=== PATIENT | female | born 1985 | race Caucasian/White ===

== ENCOUNTER 2019-02-23 12:15 | Emergency (ER) | payer OTHER ==
[2019-02-23 13:57] VITALS: BP 140/87
--- NOTE | 2019-02-23 14:18 | UC ---
Skin Complaint HPI - HPI Summary HPI Summary: 33-year-old female comes in with a chief complaint of itching and concern of having scabies. Reports there is been bedbugs in her house and then exterminators in her house. Reports seeing bugs on her skin is all very itchy. Also has had 3 positive tests at home test today. Also spilled some hot water on her right ankle and has a burn on her right ankle and foot. - History of Current Complaint Chief Complaint: UCSkin Time Seen by Provider: 02/23/19 13:49 Stated Complaint: PERSONAL Pain Intensity: 0 - Allergy/Home Medications Allergies/Adverse Reactions: Allergies Allergy/AdvReac Type Severity Reaction Status Date / Time No Known Allergies Allergy Verified 02/23/19 13:51 Home Medications: Home Medications Buprenorp/Nalox 8-2 MG SL TAB [Suboxone 8-2 mg SL TAB*] 1 tab.sl SL BID [History Confirmed 02/23/19] Gabapentin CAP(*) [Neurontin 300 CAP(*)] 300 mg PO BEDTIME 02/23/19 [History Confirmed 02/23/19] Insulin GLARGINE(*) [Lantus(*)] 0 units SUBCUT ONCE 02/23/19 [History Confirmed 02/23/19] Insulin LISPRO* [HumaLOG*] 0 units SUBCUT SEE INSTRUCTIONS 02/23/19 [History Confirmed 02/23/19] Sertraline* [Zoloft*] 50 mg PO BEDTIME 02/23/19 [History Confirmed 02/23/19] PMH/Surg Hx/FS Hx/Imm Hx Previously Healthy: Yes Endocrine History: Diabetes - Surgical History Surgical History: Yes Surgery Procedure, Year, and Place: . skin transplant - Family History Known Family History: Positive: Non-Contributory - Social History Alcohol Use: Rare Substance Use Type: None Smoking Status (MU): Light Every Day Tobacco Smoker Type: Cigarettes Amount Used/How Often: 2 cigarettes daily Review of Systems All Other Systems Reviewed And Are Negative: Yes Constitutional: Positive: Other - SEE HPI Skin: Positive: Other - SEE HPI Eyes: Positive: Negative ENT: Positive: Negative Respiratory: Positive: Negative Cardiovascular: Positive: Negative Gastrointestinal: Positive: Negative Motor: Positive: Negative Neurovascular: Positive: Negative Musculoskeletal: Positive: Negative Neurological: Positive: Negative Psychological: Positive: Negative Is Patient Immunocompromised?: No Physical Exam Triage Information Reviewed: Yes Appearance: Well-Appearing, No Pain Distress, Well-Nourished Vital Signs: Initial Vital Signs Temp 97.8 F 02/23/19 13:51 Pulse 100 02/23/19 13:51 Resp 20 02/23/19 13:51 BP 140/87 02/23/19 13:51 Pulse Ox 99 02/23/19 13:51 Vital Signs Reviewed: Yes Eye Exam: Normal Eyes: Positive: Conjunctiva Clear Neck: Positive: Supple Respiratory: Positive: No respiratory distress Musculoskeletal: Positive: Strength Intact, ROM Intact Neurological: Positive: Alert Psychological: Positive: Age Appropriate Behavior Skin: Positive: Other - patient has erythema around the right ankle and foot. No blisters. Also has multiple scratch riddle on her arms. Course/Dx - Course Course Of Treatment: Patient reports seeing bugs on her and having itching everywhere. In no bugs seen on the patient's body. At this time we'll treat with Elimite for potential scabies. Going to use mupirocin for the first-degree burn on the ankle and foot. For the who referred her to [facility] and also the Center. Get reevaluated sooner if worse or any questions or concerns. - Diagnoses Provider Diagnosis: Rash, , Burn of leg, right, first degree Discharge ED - Sign-Out/Discharge Documenting (check all that apply): Patient Departure All imaging exams completed and their final reports reviewed: No Studies - Discharge Plan Condition: Stable Disposition: HOME Prescriptions: Mupirocin 1 applic TOPICAL BID #22 gm Permethrin [Elimite] 1 applic TOPICAL ONCE #60 gm Vit37/Iron/Folic Acid [Prenata Chewable Tablet] 1 tab PO DAILY #90 tab.chew Patient Education Materials: (ED), Scabies (ED), Superficial Burn (ED ), Acute Rash (ED) Referrals: [facility] [Provider Group] Critsina Jiang MD [Primary Care Provider] - Additional Instructions: FOLLOW UP WITH YOUR PRIMARY CARE DOCTOR FOR YOUR RASH. FOLLOW UP WITH OBGYN FOR YOUR . TAKE A DAILY VITAMIN. GET REEVALUATED SOONER IF NOT IMPROVING OR YOUR CONDITION WORSENS OR ANY QUESTIONS OR CONCERNS - Billing Disposition and Condition Condition: STABLE Disposition: Home
== END 2019-02-23 14:36 | disposition home or self-care (01) ==
LOC: UCCORT 12:15
DX: O9A.211 Injury, poisoning and certain other consequences of external causes complicating pregnancy, first trimester (principal); O99.331 Smoking (tobacco) complicating pregnancy, first trimester; O99.89 Other specified diseases and conditions complicating pregnancy, childbirth and the puerperium; O24.911 Unspecified diabetes mellitus in pregnancy, first trimester; T25.191A Burn of first degree of multiple sites of right ankle and foot, initial encounter; R21 Rash and other nonspecific skin eruption; F17.210 Nicotine dependence, cigarettes, uncomplicated; Z79.4 Long term (current) use of insulin; X11.8XXA Contact with other hot tap-water, initial encounter; Y92.9 Unspecified place or not applicable
CPT/HCPCS: 84702; 99212; G0463

== ENCOUNTER 2019-09-11 15:46 | Inpatient (IN) ==
[2019-09-11] MEDS ORDERED: Ondansetron 4 mg VIAL 2 MG/ML 2 ml VIAL IV PRN (16:03)
[2019-09-11] MEDS ORDERED: Dextrose 50% Syringe 50 ml 25 GM/50 ML SYRINGE IV PUSH PRN (16:10)
[2019-09-11] MEDS ORDERED: Vancomycin per Pharmacy 1 EA NOTE FOLLOW UP PRN (16:45)
[2019-09-11] MEDS: Nicotine GUM 4MG FRUIT FLAVOR PO PRN ×2 (18:03→20:46)
[2019-09-11] MEDS: Insulin LISPRO 100 units/ml(*) SUBCUT SCH ×2 (18:03→20:45)
[2019-09-11] MEDS: Vancomycin(*) 1,250 MG in NS 0.9% 250 ml 250 ML IV SCH (18:05)
[2019-09-11] MEDS: Insulin GLARGINE 100 un/ml (*) 10 ml VIAL SUBCUT SCH (20:45)
[2019-09-11] MEDS: Buprenorp/Nalox 8-2 MG SL TAB PO SCH (20:46)
[2019-09-11] MEDS ORDERED: Insulin GLARGINE 100 un/ml (*) 10 ml VIAL SUBCUT SCH (21:00)
[2019-09-12] MEDS: Vancomycin(*) 1,250 MG in NS 0.9% 250 ml 250 ML IV SCH ×3 (01:12→17:58)
[2019-09-12 05:32] LABS: EGFR African American 101.7 (>60)
[2019-09-12] MEDS: Insulin LISPRO 100 units/ml(*) SUBCUT SCH ×5 (08:02→20:46)
[2019-09-12] MEDS: Vitamin THERAPEUTIC TAB PO SCH (08:03)
[2019-09-12] MEDS: Buprenorp/Nalox 8-2 MG SL TAB PO SCH ×2 (08:05→20:45)
[2019-09-12] MEDS ORDERED: Insulin GLARGINE 100 un/ml (*) 10 ml VIAL SUBCUT SCH ×3 (09:00)
[2019-09-12] MEDS: Insulin GLARGINE 100 un/ml (*) 10 ml VIAL SUBCUT SCH ×2 (09:00→20:46)
[2019-09-12] MEDS: Nicotine GUM 4MG FRUIT FLAVOR PO PRN ×3 (10:14→20:46)
[2019-09-12] MEDS ORDERED: Dextrose 50% Syringe 50 ml 25 GM/50 ML SYRINGE IV PUSH PRN (12:32)
[2019-09-13] MEDS: Vancomycin(*) 1,250 MG in NS 0.9% 250 ml 250 ML IV SCH ×3 (01:58→17:08)
[2019-09-13] MEDS ORDERED: Vancomycin Trough Check NOTE FOLLOW UP ONE (09:30)
[2019-09-13] MEDS: Vitamin THERAPEUTIC TAB PO SCH (09:31)
[2019-09-13] MEDS: Buprenorp/Nalox 8-2 MG SL TAB PO SCH ×2 (09:33→20:35)
[2019-09-13] MEDS: Insulin LISPRO 100 units/ml(*) SUBCUT SCH ×5 (09:35→20:40)
[2019-09-13] MEDS: Insulin GLARGINE 100 un/ml (*) 10 ml VIAL SUBCUT SCH ×2 (09:35→20:41)
[2019-09-13] MEDS: Nicotine GUM 4MG FRUIT FLAVOR PO PRN ×3 (09:46→20:42)
[2019-09-13] MEDS ORDERED: Insulin LISPRO 100 units/ml(*) SUBCUT SCH (12:00)
[2019-09-14] MEDS: Vancomycin(*) 1,250 MG in NS 0.9% 250 ml 250 ML IV SCH ×3 (01:57→17:42)
[2019-09-14] MEDS: Buprenorp/Nalox 8-2 MG SL TAB PO SCH ×2 (09:18→19:41)
[2019-09-14] MEDS: Vitamin THERAPEUTIC TAB PO SCH (09:18)
[2019-09-14] MEDS: Insulin LISPRO 100 units/ml(*) SUBCUT SCH ×5 (09:19→19:55)
[2019-09-14] MEDS: Nicotine GUM 4MG FRUIT FLAVOR PO PRN ×3 (09:20→17:42)
[2019-09-14] MEDS: Insulin GLARGINE 100 un/ml (*) 10 ml VIAL SUBCUT SCH ×2 (09:20→19:55)
[2019-09-14 12:49] LABS: EGFR African American 100.2 (>60); EGFR Non-African American 82.8 (>60)
[2019-09-15] MEDS: Vancomycin(*) 1,250 MG in NS 0.9% 250 ml 250 ML IV SCH ×3 (02:20→18:13)
[2019-09-15] MEDS: Vitamin THERAPEUTIC TAB PO SCH (08:25)
[2019-09-15] MEDS: Buprenorp/Nalox 8-2 MG SL TAB PO SCH ×2 (08:25→19:31)
[2019-09-15] MEDS: Insulin LISPRO 100 units/ml(*) SUBCUT SCH ×5 (08:37→19:31)
[2019-09-15] MEDS: Insulin GLARGINE 100 un/ml (*) 10 ml VIAL SUBCUT SCH ×2 (08:38→19:32)
[2019-09-15] MEDS: Nicotine GUM 4MG FRUIT FLAVOR PO PRN ×5 (08:46→22:27)
[2019-09-16] MEDS: Vancomycin(*) 1,250 MG in NS 0.9% 250 ml 250 ML IV SCH ×3 (01:56→18:09)
[2019-09-16] MEDS: Buprenorp/Nalox 8-2 MG SL TAB PO SCH ×2 (08:19→20:15)
[2019-09-16] MEDS: Vitamin THERAPEUTIC TAB PO SCH (08:19)
[2019-09-16] MEDS: Insulin GLARGINE 100 un/ml (*) 10 ml VIAL SUBCUT SCH ×2 (08:22→20:14)
[2019-09-16] MEDS: Insulin LISPRO 100 units/ml(*) SUBCUT SCH ×5 (08:22→20:14)
[2019-09-16] MEDS: Nicotine GUM 4MG FRUIT FLAVOR PO PRN ×3 (12:22→20:15)
[2019-09-16] MEDS ORDERED: Insulin LISPRO 100 units/ml(*) SUBCUT SCH (21:00)
[2019-09-17] MEDS: Vancomycin(*) 1,250 MG in NS 0.9% 250 ml 250 ML IV SCH ×3 (02:51→18:43)
[2019-09-17] MEDS: Vitamin THERAPEUTIC TAB PO SCH (09:21)
[2019-09-17] MEDS: Buprenorp/Nalox 8-2 MG SL TAB PO SCH ×2 (09:23→21:32)
[2019-09-17] MEDS: Insulin GLARGINE 100 un/ml (*) 10 ml VIAL SUBCUT SCH ×2 (09:24→21:30)
[2019-09-17] MEDS: Insulin LISPRO 100 units/ml(*) SUBCUT SCH ×6 (09:40→21:31)
[2019-09-17] MEDS: Nicotine GUM 4MG FRUIT FLAVOR PO PRN ×3 (09:40→19:44)
[2019-09-17] MEDS ORDERED: Vancomycin Trough Check NOTE FOLLOW UP ONE (17:30)
[2019-09-17] MEDS ORDERED: Alteplase (CATHFLO) 2 MG VIAL IV STA (18:24)
[2019-09-18] MEDS: Vancomycin(*) 1,250 MG in NS 0.9% 250 ml 250 ML IV SCH ×3 (02:38→17:31)
[2019-09-18 05:44] LABS: ABS Basophils 0.1 10^3/ul (0-0.2); ABS Eosinophils 0.1 10^3/ul (0-0.6); ABS Monocytes 0.4 10^3/ul (0-0.8); Eosinophil % 2.5 %; Hematocrit 30 % (35-47); Hemoglobin 10.1 g/dL (12.0-16.0); Lymphocyte % 54.9 %; Mean Corpuscular HGB Conc 33 g/dL (31-36); Mean Corpuscular Hemoglobin 28 pg (27-31); Mean Corpuscular Volume 84 fL (80-97); Mean Platelet Volume 6.2 fL (7.4-10.4); Nucleated Red Blood Cells % 0.1; Platelet Count 274 10^3/uL (150-450); Red Blood Count 3.59 10^6 /uL (3.70-4.87); Red Cell Distribution Width 15 % (10-15); White Blood Count 5.5 10^3/uL (3.5-10.8)
[2019-09-18 06:02] LABS: Albumin 3.2 g/dL (3.2-5.2); Albumin/Globulin Ratio 1.1 (1-3); BUN/Creatinine Ratio 39.7 (8-20); C Reactive Protein 5.05 mg/L (<8.01); Calcium 8.6 mg/dL (8.6-10.3); EGFR African American 109.2 (>60); EGFR Non-African American 90.2 (>60); Globulin 2.9 g/dL (2-4); Total Bilirubin 0.2 mg/dL (0.2-1.0); Total Protein 6.1 g/dL (6.4-8.9)
[2019-09-18] MEDS: Insulin LISPRO 100 units/ml(*) SUBCUT SCH ×7 (07:26→21:35)
[2019-09-18] MEDS: Vitamin THERAPEUTIC TAB PO SCH (08:57)
[2019-09-18] MEDS: Insulin GLARGINE 100 un/ml (*) 10 ml VIAL SUBCUT SCH ×2 (09:00→21:35)
[2019-09-18] MEDS: Buprenorp/Nalox 8-2 MG SL TAB PO SCH ×2 (09:01→21:37)
[2019-09-18] MEDS: Nicotine GUM 4MG FRUIT FLAVOR PO PRN ×4 (09:05→21:37)
[2019-09-19] MEDS: Vancomycin(*) 1,250 MG in NS 0.9% 250 ml 250 ML IV SCH ×3 (02:48→18:42)
[2019-09-19 06:04] LABS: ABS Basophils 0.1 10^3/ul (0-0.2); ABS Eosinophils 0.1 10^3/ul (0-0.6); ABS Monocytes 0.4 10^3/ul (0-0.8); Eosinophil % 2.5 %; Hematocrit 32 % (35-47); Hemoglobin 10.6 g/dL (12.0-16.0); Lymphocyte % 54.8 %; Mean Corpuscular HGB Conc 33 g/dL (31-36); Mean Corpuscular Hemoglobin 28 pg (27-31); Mean Corpuscular Volume 83 fL (80-97); Mean Platelet Volume 6.8 fL (7.4-10.4); Platelet Count 293 10^3/uL (150-450); Red Cell Distribution Width 15 % (10-15); White Blood Count 5.4 10^3/uL (3.5-10.8)
[2019-09-19 06:15] LABS: Albumin 3.3 g/dL (3.2-5.2); Albumin/Globulin Ratio 1.1 (1-3); BUN/Creatinine Ratio 34.7 (8-20); C Reactive Protein 4.36 mg/L (<8.01); Calcium 8.9 mg/dL (8.6-10.3); EGFR African American 110.9 (>60); EGFR Non-African American 91.7 (>60); Total Bilirubin 0.2 mg/dL (0.2-1.0); Total Protein 6.3 g/dL (6.4-8.9)
[2019-09-19] MEDS: Insulin LISPRO 100 units/ml(*) SUBCUT SCH ×7 (07:52→20:54)
[2019-09-19] MEDS: Buprenorp/Nalox 8-2 MG SL TAB PO SCH ×2 (08:24→20:49)
[2019-09-19] MEDS: Vitamin THERAPEUTIC TAB PO SCH (08:25)
[2019-09-19] MEDS: Nicotine GUM 4MG FRUIT FLAVOR PO PRN ×3 (08:25→20:49)
[2019-09-19] MEDS: Insulin GLARGINE 100 un/ml (*) 10 ml VIAL SUBCUT SCH ×2 (08:25→20:48)
[2019-09-20] MEDS: Vancomycin(*) 1,250 MG in NS 0.9% 250 ml 250 ML IV SCH ×3 (02:49→18:36)
[2019-09-20] MEDS: Insulin LISPRO 100 units/ml(*) SUBCUT SCH ×7 (09:18→20:47)
[2019-09-20] MEDS: Insulin GLARGINE 100 un/ml (*) 10 ml VIAL SUBCUT SCH ×2 (09:19→20:46)
[2019-09-20] MEDS: Vitamin THERAPEUTIC TAB PO SCH (09:21)
[2019-09-20] MEDS: Buprenorp/Nalox 8-2 MG SL TAB PO SCH ×2 (09:29→20:49)
[2019-09-20] MEDS: Nicotine GUM 4MG FRUIT FLAVOR PO PRN ×5 (09:29→23:02)
[2019-09-21] MEDS: Nicotine GUM 4MG FRUIT FLAVOR PO PRN ×6 (01:17→21:12)
[2019-09-21] MEDS: Vancomycin(*) 1,250 MG in NS 0.9% 250 ml 250 ML IV SCH ×2 (01:17→12:35)
[2019-09-21] MEDS ORDERED: Vancomycin Trough Check NOTE FOLLOW UP ONE (09:30)
[2019-09-21] MEDS: Insulin GLARGINE 100 un/ml (*) 10 ml VIAL SUBCUT SCH ×2 (09:49→21:11)
[2019-09-21] MEDS: Insulin LISPRO 100 units/ml(*) SUBCUT SCH ×7 (09:50→18:05)
[2019-09-21] MEDS: Vitamin THERAPEUTIC TAB PO SCH (09:52)
[2019-09-21] MEDS: Buprenorp/Nalox 8-2 MG SL TAB PO SCH ×2 (09:52→21:13)
[2019-09-21] MEDS: Alteplase (CATHFLO) 2 MG VIAL IV ONE ×2 (12:17→14:30)
[2019-09-21] MEDS: Vancomycin(*) 1,500 MG in NS 0.9% 250 ml 250 ML IVPB SCH (19:47)
[2019-09-22] MEDS: Buprenorp/Nalox 8-2 MG SL TAB PO SCH ×2 (09:44→21:54)
[2019-09-22] MEDS: Insulin GLARGINE 100 un/ml (*) 10 ml VIAL SUBCUT SCH ×2 (09:45→21:53)
[2019-09-22] MEDS: Vitamin THERAPEUTIC TAB PO SCH (09:45)
[2019-09-22] MEDS: Insulin LISPRO 100 units/ml(*) SUBCUT SCH ×6 (09:46→17:50)
[2019-09-22] MEDS: Nicotine GUM 4MG FRUIT FLAVOR PO PRN ×3 (09:47→21:54)
[2019-09-22] MEDS: Vancomycin(*) 1,500 MG in NS 0.9% 250 ml 250 ML IVPB SCH ×2 (09:52→20:07)
[2019-09-23] MEDS: Nicotine GUM 4MG FRUIT FLAVOR PO PRN ×5 (02:31→20:34)
[2019-09-23] MEDS: Buprenorp/Nalox 8-2 MG SL TAB PO SCH ×2 (09:19→20:29)
[2019-09-23] MEDS: Vitamin THERAPEUTIC TAB PO SCH (09:20)
[2019-09-23] MEDS: Vancomycin(*) 1,500 MG in NS 0.9% 250 ml 250 ML IVPB SCH ×2 (09:21→20:34)
[2019-09-23] MEDS: Insulin GLARGINE 100 un/ml (*) 10 ml VIAL SUBCUT SCH ×2 (09:21→20:28)
[2019-09-23] MEDS: Insulin LISPRO 100 units/ml(*) SUBCUT SCH ×6 (09:30→17:48)
[2019-09-24] MEDS ORDERED: Vancomycin Trough Check NOTE FOLLOW UP ONE (07:30)
[2019-09-24] MEDS: Insulin LISPRO 100 units/ml(*) SUBCUT SCH ×6 (08:39→18:30)
[2019-09-24 08:55] LABS: EGFR African American 94.1 (>60); EGFR Non-African American 77.8 (>60)
[2019-09-24 10:09] LABS: Vancomycin Trough 12.2 mcg/mL
[2019-09-24] MEDS: Vancomycin(*) 1,500 MG in NS 0.9% 250 ml 250 ML IVPB SCH (10:26)
[2019-09-24] MEDS: Nicotine GUM 4MG FRUIT FLAVOR PO PRN ×4 (10:28→20:08)
[2019-09-24] MEDS: Vitamin THERAPEUTIC TAB PO SCH (10:28)
[2019-09-24] MEDS: Buprenorp/Nalox 8-2 MG SL TAB PO SCH ×2 (10:28→20:07)
[2019-09-24] MEDS: Insulin GLARGINE 100 un/ml (*) 10 ml VIAL SUBCUT SCH ×2 (10:30→20:51)
[2019-09-24] MEDS: Vancomycin(*) 1,000 MG in NS 0.9% 250 ml 250 ML IV SCH ×2 (17:29→20:56)
[2019-09-25] MEDS: Vancomycin(*) 1,000 MG in NS 0.9% 250 ml 250 ML IV SCH ×4 (03:48→22:57)
[2019-09-25] MEDS: Nicotine GUM 4MG FRUIT FLAVOR PO PRN ×4 (09:14→21:37)
[2019-09-25] MEDS: Buprenorp/Nalox 8-2 MG SL TAB PO SCH ×2 (09:16→21:37)
[2019-09-25] MEDS: Vitamin THERAPEUTIC TAB PO SCH (09:16)
[2019-09-25] MEDS: Insulin LISPRO 100 units/ml(*) SUBCUT SCH ×6 (09:18→19:01)
[2019-09-25] MEDS: Insulin GLARGINE 100 un/ml (*) 10 ml VIAL SUBCUT SCH ×2 (09:19→21:59)
[2019-09-25 19:54] LABS: BUN/Creatinine Ratio 34.8 (8-20); EGFR African American 86.8 (>60); EGFR Non-African American 71.8 (>60); Magnesium 1.6 mg/dL (1.9-2.7); Potassium 4.4 mmol/L (3.5-5.0)
[2019-09-25] MEDS ORDERED: Magnesium Sulfate 2 gm BAG 2 GM/50 ML BAG IVPB ONE (21:00)
[2019-09-26] MEDS: Vancomycin(*) 1,000 MG in NS 0.9% 250 ml 250 ML IV SCH (04:50)
[2019-09-26] MEDS: Vitamin THERAPEUTIC TAB PO SCH (08:57)
[2019-09-26] MEDS: Buprenorp/Nalox 8-2 MG SL TAB PO SCH ×2 (08:59→21:57)
[2019-09-26] MEDS: Nicotine GUM 4MG FRUIT FLAVOR PO PRN ×4 (09:00→21:56)
[2019-09-26] MEDS: Insulin LISPRO 100 units/ml(*) SUBCUT SCH ×6 (09:01→18:01)
[2019-09-26] MEDS: Insulin GLARGINE 100 un/ml (*) 10 ml VIAL SUBCUT SCH ×2 (09:02→21:55)
[2019-09-26] MEDS ORDERED: Vancomycin Trough Check NOTE FOLLOW UP ONE (09:30)
[2019-09-26 09:37] LABS: Magnesium 1.9 mg/dL (1.9-2.7)
[2019-09-26] MEDS: Vancomycin(*) 1,250 MG in NS 0.9% 250 ml 250 ML IVPB SCH ×2 (14:22→21:58)
[2019-09-26 17:35] LABS: BUN/Creatinine Ratio 38.6 (8-20); EGFR African American 114.6 (>60); EGFR Non-African American 94.7 (>60); Potassium 4.4 mmol/L (3.5-5.0)
[2019-09-27] MEDS: Vancomycin(*) 1,250 MG in NS 0.9% 250 ml 250 ML IVPB SCH ×3 (05:28→21:58)
[2019-09-27] MEDS: Insulin LISPRO 100 units/ml(*) SUBCUT SCH ×6 (09:03→18:20)
[2019-09-27] MEDS: Insulin GLARGINE 100 un/ml (*) 10 ml VIAL SUBCUT SCH ×2 (09:03→21:59)
[2019-09-27] MEDS: Vitamin THERAPEUTIC TAB PO SCH (09:06)
[2019-09-27] MEDS: Buprenorp/Nalox 8-2 MG SL TAB PO SCH ×2 (09:08→21:59)
[2019-09-27] MEDS: Nicotine GUM 4MG FRUIT FLAVOR PO PRN ×2 (13:52→20:09)
[2019-09-28] MEDS ORDERED: Vancomycin Trough Check NOTE FOLLOW UP ONE (05:30)
[2019-09-28] MEDS: Vancomycin(*) 1,250 MG in NS 0.9% 250 ml 250 ML IVPB SCH ×2 (09:03→17:52)
[2019-09-28] MEDS: Vitamin THERAPEUTIC TAB PO SCH (09:23)
[2019-09-28] MEDS: Buprenorp/Nalox 8-2 MG SL TAB PO SCH ×2 (09:27→21:46)
[2019-09-28] MEDS: Nicotine GUM 4MG FRUIT FLAVOR PO PRN ×4 (09:28→21:45)
[2019-09-28] MEDS: Insulin LISPRO 100 units/ml(*) SUBCUT SCH ×7 (10:06→19:11)
[2019-09-28] MEDS: Insulin GLARGINE 100 un/ml (*) 10 ml VIAL SUBCUT SCH ×2 (10:40→21:43)
[2019-09-29] MEDS: Vancomycin(*) 1,250 MG in NS 0.9% 250 ml 250 ML IVPB SCH ×4 (01:30→20:45)
[2019-09-29] MEDS ORDERED: Vancomycin Trough Check NOTE FOLLOW UP ONE (09:30)
[2019-09-29] MEDS: Nicotine GUM 4MG FRUIT FLAVOR PO PRN ×2 (10:09→14:35)
[2019-09-29] MEDS: Vitamin THERAPEUTIC TAB PO SCH (10:09)
[2019-09-29] MEDS: Buprenorp/Nalox 8-2 MG SL TAB PO SCH ×2 (10:10→20:51)
[2019-09-29] MEDS: Insulin LISPRO 100 units/ml(*) SUBCUT SCH ×6 (10:11→17:26)
[2019-09-29] MEDS: Insulin GLARGINE 100 un/ml (*) 10 ml VIAL SUBCUT SCH ×2 (10:12→20:54)
[2019-09-29] MEDS ORDERED: Alteplase (CATHFLO) 2 MG VIAL IV ONE (10:23)
[2019-09-30] MEDS: Vancomycin(*) 1,250 MG in NS 0.9% 250 ml 250 ML IVPB SCH ×3 (04:14→17:49)
[2019-09-30] MEDS: Insulin LISPRO 100 units/ml(*) SUBCUT SCH ×6 (08:13→17:50)
[2019-09-30] MEDS: Insulin GLARGINE 100 un/ml (*) 10 ml VIAL SUBCUT SCH ×2 (08:13→20:55)
[2019-09-30] MEDS: Buprenorp/Nalox 8-2 MG SL TAB PO SCH ×2 (09:36→20:51)
[2019-09-30] MEDS: Vitamin THERAPEUTIC TAB PO SCH (09:37)
[2019-09-30] MEDS: Nicotine GUM 4MG FRUIT FLAVOR PO PRN ×2 (09:39→13:45)
[2019-10-01] MEDS: Vancomycin(*) 1,250 MG in NS 0.9% 250 ml 250 ML IVPB SCH ×3 (02:43→17:44)
[2019-10-01 06:25] LABS: ABS Eosinophils 0.2 10^3/ul (0-0.6); ABS Lymphocytes 2.7 10^3/ul (1.0-4.8); ABS Monocytes 0.6 10^3/ul (0-0.8); Eosinophil % 2.7 %; Hematocrit 31 % (35-47); Hemoglobin 10.8 g/dL (12.0-16.0); Lymphocyte % 41.9 %; Mean Corpuscular HGB Conc 35 g/dL (31-36); Mean Corpuscular Hemoglobin 28 pg (27-31); Mean Corpuscular Volume 80 fL (80-97); Mean Platelet Volume 6.8 fL (7.4-10.4); Platelet Count 282 10^3/uL (150-450); Red Blood Count 3.91 10^6 /uL (3.70-4.87); Red Cell Distribution Width 15 % (10-15); White Blood Count 6.5 10^3/uL (3.5-10.8)
[2019-10-01 06:47] LABS: Albumin 3.4 g/dL (3.2-5.2); Albumin/Globulin Ratio 1.4 (1-3); BUN/Creatinine Ratio 38.2 (8-20); C Reactive Protein 2.54 mg/L (<8.01); Calcium 8.7 mg/dL (8.6-10.3); EGFR African American 118.5 (>60); EGFR Non-African American 97.9 (>60); Globulin 2.5 g/dL (2-4); Potassium 3.9 mmol/L (3.5-5.0); Total Bilirubin 0.2 mg/dL (0.2-1.0); Total Protein 5.9 g/dL (6.4-8.9)
[2019-10-01] MEDS ORDERED: Vancomycin Trough Check NOTE FOLLOW UP ONE (09:30)
[2019-10-01] MEDS: Buprenorp/Nalox 8-2 MG SL TAB PO SCH ×2 (09:43→21:57)
[2019-10-01] MEDS: Vitamin THERAPEUTIC TAB PO SCH (09:45)
[2019-10-01] MEDS: Insulin LISPRO 100 units/ml(*) SUBCUT SCH ×6 (09:46→17:43)
[2019-10-01] MEDS: Nicotine GUM 4MG FRUIT FLAVOR PO PRN ×5 (09:46→21:59)
[2019-10-01] MEDS: Insulin GLARGINE 100 un/ml (*) 10 ml VIAL SUBCUT SCH ×2 (09:47→21:57)
[2019-10-02] MEDS: Vancomycin(*) 1,250 MG in NS 0.9% 250 ml 250 ML IVPB SCH ×3 (02:11→18:13)
[2019-10-02] MEDS: Nicotine GUM 4MG FRUIT FLAVOR PO PRN ×4 (09:44→22:18)
[2019-10-02] MEDS: Buprenorp/Nalox 8-2 MG SL TAB PO SCH ×2 (09:44→20:33)
[2019-10-02] MEDS: Vitamin THERAPEUTIC TAB PO SCH (09:45)
[2019-10-02] MEDS: Insulin GLARGINE 100 un/ml (*) 10 ml VIAL SUBCUT SCH ×2 (09:46→20:30)
[2019-10-02] MEDS: Insulin LISPRO 100 units/ml(*) SUBCUT SCH ×6 (09:47→18:18)
[2019-10-03] MEDS: Vancomycin(*) 1,250 MG in NS 0.9% 250 ml 250 ML IVPB SCH ×3 (01:53→18:44)
[2019-10-03] MEDS ORDERED: Vancomycin Trough Check NOTE FOLLOW UP ONE (09:30)
[2019-10-03] MEDS: Buprenorp/Nalox 8-2 MG SL TAB PO SCH ×2 (09:50→21:16)
[2019-10-03] MEDS: Vitamin THERAPEUTIC TAB PO SCH (09:50)
[2019-10-03] MEDS: Nicotine GUM 4MG FRUIT FLAVOR PO PRN ×4 (09:50→21:16)
[2019-10-03 10:37] LABS: EGFR African American 104.2 (>60); EGFR Non-African American 86.1 (>60)
[2019-10-03 10:49] LABS: Vancomycin Trough 18.2 mcg/mL
[2019-10-03] MEDS: Insulin GLARGINE 100 un/ml (*) 10 ml VIAL SUBCUT SCH ×2 (11:36→21:17)
[2019-10-03] MEDS: Insulin LISPRO 100 units/ml(*) SUBCUT SCH ×6 (11:38→18:44)
[2019-10-04 00:17] LABS: Urine Benzodiazepine Screen None Detected (None Detect); Urine Opiates Screen None Detected (None Detect)
[2019-10-04] MEDS: Vancomycin(*) 1,250 MG in NS 0.9% 250 ml 250 ML IVPB SCH ×3 (01:30→17:12)
[2019-10-04] MEDS: Nicotine GUM 4MG FRUIT FLAVOR PO PRN ×4 (10:15→20:25)
[2019-10-04] MEDS: Buprenorp/Nalox 8-2 MG SL TAB PO SCH ×2 (10:16→21:18)
[2019-10-04] MEDS: Vitamin THERAPEUTIC TAB PO SCH (10:16)
[2019-10-04] MEDS: Insulin LISPRO 100 units/ml(*) SUBCUT SCH ×6 (10:17→17:19)
[2019-10-04] MEDS: Insulin GLARGINE 100 un/ml (*) 10 ml VIAL SUBCUT SCH ×2 (10:17→21:20)
[2019-10-05] MEDS: Vancomycin(*) 1,250 MG in NS 0.9% 250 ml 250 ML IVPB SCH ×3 (02:06→17:36)
[2019-10-05] MEDS: Nicotine GUM 4MG FRUIT FLAVOR PO PRN ×6 (04:24→20:01)
[2019-10-05] MEDS: Vitamin THERAPEUTIC TAB PO SCH (09:15)
[2019-10-05] MEDS: Buprenorp/Nalox 8-2 MG SL TAB PO SCH ×2 (09:16→20:47)
[2019-10-05] MEDS: Insulin LISPRO 100 units/ml(*) SUBCUT SCH ×6 (09:17→17:37)
[2019-10-05] MEDS: Insulin GLARGINE 100 un/ml (*) 10 ml VIAL SUBCUT SCH ×2 (09:17→20:47)
[2019-10-06] MEDS: Vancomycin(*) 1,250 MG in NS 0.9% 250 ml 250 ML IVPB SCH ×3 (01:36→18:17)
[2019-10-06] MEDS: Buprenorp/Nalox 8-2 MG SL TAB PO SCH ×2 (09:58→20:33)
[2019-10-06] MEDS: Nicotine GUM 4MG FRUIT FLAVOR PO PRN ×5 (09:58→20:33)
[2019-10-06] MEDS: Vitamin THERAPEUTIC TAB PO SCH (09:59)
[2019-10-06] MEDS: Insulin LISPRO 100 units/ml(*) SUBCUT SCH ×6 (09:59→18:17)
[2019-10-06] MEDS: Insulin GLARGINE 100 un/ml (*) 10 ml VIAL SUBCUT SCH ×2 (10:00→20:34)
[2019-10-07] MEDS: Vancomycin(*) 1,250 MG in NS 0.9% 250 ml 250 ML IVPB SCH ×3 (01:56→18:03)
[2019-10-07] MEDS: Vitamin THERAPEUTIC TAB PO SCH (09:51)
[2019-10-07] MEDS: Insulin LISPRO 100 units/ml(*) SUBCUT SCH ×7 (09:52→18:03)
[2019-10-07] MEDS: Nicotine GUM 4MG FRUIT FLAVOR PO PRN ×5 (09:52→21:00)
[2019-10-07] MEDS: Buprenorp/Nalox 8-2 MG SL TAB PO SCH ×2 (09:53→21:01)
[2019-10-07] MEDS: Insulin GLARGINE 100 un/ml (*) 10 ml VIAL SUBCUT SCH ×2 (10:10→21:02)
[2019-10-08] MEDS: Vancomycin(*) 1,250 MG in NS 0.9% 250 ml 250 ML IVPB SCH ×3 (02:06→17:52)
[2019-10-08] MEDS: Nicotine GUM 4MG FRUIT FLAVOR PO PRN ×5 (02:06→21:40)
[2019-10-08] MEDS ORDERED: Vancomycin Trough Check NOTE FOLLOW UP ONE (09:30)
[2019-10-08 09:37] LABS: EGFR African American 102.6 (>60); EGFR Non-African American 84.8 (>60)
[2019-10-08] MEDS: Buprenorp/Nalox 8-2 MG SL TAB PO SCH ×2 (09:38→21:40)
[2019-10-08] MEDS: Vitamin THERAPEUTIC TAB PO SCH (09:39)
[2019-10-08 09:52] LABS: Vancomycin Trough 17.1 mcg/mL
[2019-10-08] MEDS: Insulin LISPRO 100 units/ml(*) SUBCUT SCH ×6 (09:57→17:51)
[2019-10-08] MEDS: Insulin GLARGINE 100 un/ml (*) 10 ml VIAL SUBCUT SCH ×2 (09:58→21:41)
[2019-10-09] MEDS: Vancomycin(*) 1,250 MG in NS 0.9% 250 ml 250 ML IVPB SCH ×3 (01:30→17:35)
[2019-10-09 05:17] LABS: ABS Basophils 0.1 10^3/ul (0-0.2); ABS Eosinophils 0.1 10^3/ul (0-0.6); ABS Lymphocytes 2.4 10^3/ul (1.0-4.8); ABS Monocytes 0.5 10^3/ul (0-0.8); Eosinophil % 2.7 %; Hematocrit 30 % (35-47); Hemoglobin 10.1 g/dL (12.0-16.0); Lymphocyte % 48.9 %; Mean Corpuscular HGB Conc 34 g/dL (31-36); Mean Corpuscular Hemoglobin 27 pg (27-31); Mean Corpuscular Volume 79 fL (80-97); Mean Platelet Volume 7.1 fL (7.4-10.4); Nucleated Red Blood Cells % 0.1; Platelet Count 220 10^3/uL (150-450); Red Blood Count 3.76 10^6 /uL (3.70-4.87); Red Cell Distribution Width 15 % (10-15); White Blood Count 4.9 10^3/uL (3.5-10.8)
[2019-10-09 05:39] LABS: ALT 16 U/L (7-52); Albumin 3.3 g/dL (3.2-5.2); Albumin/Globulin Ratio 1.3 (1-3); Alkaline Phosphatase 52 U/L (34-104); Anion Gap 2 mmol/L (2-11); BUN/Creatinine Ratio 40.7 (8-20); Blood Urea Nitrogen 35 mg/dL (6-24); CO2 Carbon Dioxide 27 mmol/L (22-32); Chloride 103 mmol/L (101-111); EGFR African American 90.3 (>60); EGFR Non-African American 74.7 (>60); Globulin 2.6 g/dL (2-4); Glucose 292 mg/dL (70-100); Sodium 132 mmol/L (135-145); Total Protein 5.9 g/dL (6.4-8.9)
[2019-10-09] MEDS: Insulin LISPRO 100 units/ml(*) SUBCUT SCH ×6 (09:57→19:17)
[2019-10-09] MEDS: Insulin GLARGINE 100 un/ml (*) 10 ml VIAL SUBCUT SCH ×2 (09:57→21:07)
[2019-10-09] MEDS: Buprenorp/Nalox 8-2 MG SL TAB PO SCH ×2 (10:02→21:07)
[2019-10-09] MEDS: Vitamin THERAPEUTIC TAB PO SCH (10:03)
[2019-10-09] MEDS: Nicotine GUM 4MG FRUIT FLAVOR PO PRN ×4 (12:04→19:59)
[2019-10-10] MEDS: Vancomycin(*) 1,250 MG in NS 0.9% 250 ml 250 ML IVPB SCH ×3 (02:14→18:10)
[2019-10-10] MEDS: Nicotine GUM 4MG FRUIT FLAVOR PO PRN ×4 (02:16→20:53)
[2019-10-10] MEDS: Insulin GLARGINE 100 un/ml (*) 10 ml VIAL SUBCUT SCH ×2 (10:58→20:55)
[2019-10-10] MEDS: Insulin LISPRO 100 units/ml(*) SUBCUT SCH ×6 (10:59→20:54)
[2019-10-10] MEDS: Vitamin THERAPEUTIC TAB PO SCH (11:10)
[2019-10-10] MEDS: Buprenorp/Nalox 8-2 MG SL TAB PO SCH ×2 (11:11→20:53)
[2019-10-11] MEDS: Vancomycin(*) 1,250 MG in NS 0.9% 250 ml 250 ML IVPB SCH ×3 (03:05→18:30)
[2019-10-11] MEDS: Nicotine GUM 4MG FRUIT FLAVOR PO PRN ×5 (03:05→21:14)
[2019-10-11] MEDS: Vitamin THERAPEUTIC TAB PO SCH (09:08)
[2019-10-11] MEDS: Buprenorp/Nalox 8-2 MG SL TAB PO SCH ×2 (09:08→21:12)
[2019-10-11] MEDS: Insulin LISPRO 100 units/ml(*) SUBCUT SCH ×6 (09:54→18:29)
[2019-10-11] MEDS: Insulin GLARGINE 100 un/ml (*) 10 ml VIAL SUBCUT SCH ×2 (09:58→21:13)
[2019-10-12] MEDS: Vancomycin(*) 1,250 MG in NS 0.9% 250 ml 250 ML IVPB SCH ×3 (02:12→18:30)
[2019-10-12] MEDS ORDERED: Lactated Ringers 1000 ml BAG 1,000 ML IV SCH (06:00)
[2019-10-12] MEDS: Insulin LISPRO 100 units/ml(*) SUBCUT SCH ×6 (07:22→18:33)
[2019-10-12] MEDS: Insulin GLARGINE 100 un/ml (*) 10 ml VIAL SUBCUT SCH ×2 (07:22→20:44)
[2019-10-12] MEDS: Nicotine GUM 4MG FRUIT FLAVOR PO PRN ×5 (08:57→20:40)
[2019-10-12] MEDS ORDERED: Famotidine IV 10 MG/ML 2 ml VIAL (20 mg) IV ONE (09:30)
[2019-10-12] MEDS: Buprenorp/Nalox 8-2 MG SL TAB PO SCH ×2 (10:01→20:41)
[2019-10-12] MEDS: Vitamin THERAPEUTIC TAB PO SCH (10:02)
[2019-10-12] MEDS ORDERED: fentaNYL 100 mcg/2 ml 50 MCG/ML VIAL ONE (11:41)
[2019-10-12] MEDS ORDERED: Midazolam 5 mg/5 ml VIAL 1 mg/ml 5 ml VIAL (5 mg) ONE (11:41)
[2019-10-12] MEDS ORDERED: Propofol 10 MG/ML 20 ML BTL ONE (11:42)
[2019-10-12] MEDS ORDERED: Lidocaine 2% PF 5 ML VIAL ONE (11:42)
[2019-10-12] MEDS ORDERED: Naloxone 0.4 mg VIAL 0.4 mg/ml 1 ml VIAL IV PRN (11:52)
[2019-10-12] MEDS ORDERED: DiMENhydriNATE IV 50 mg/ml 1 ml VIAL IV PUSH PRN (11:52)
[2019-10-12] MEDS ORDERED: Dextrose 50% Syringe 50 ml 25 GM/50 ML SYRINGE IV PUSH PRN (11:53)
[2019-10-12] MEDS ORDERED: Dextrose 50% Syringe 50 ml 25 GM/50 ML SYRINGE ONE (11:54)
[2019-10-12] MEDS ORDERED: Phenylephrine 40 mcg/mL 10mL (400mcg) SYRINGE ONE (12:25)
[2019-10-13] MEDS: Vancomycin(*) 1,250 MG in NS 0.9% 250 ml 250 ML IVPB SCH ×3 (02:03→18:50)
[2019-10-13] MEDS: Insulin LISPRO 100 units/ml(*) SUBCUT SCH ×6 (09:32→18:45)
[2019-10-13] MEDS: Buprenorp/Nalox 8-2 MG SL TAB PO SCH ×2 (09:43→19:32)
[2019-10-13] MEDS: Nicotine GUM 4MG FRUIT FLAVOR PO PRN ×4 (09:44→18:50)
[2019-10-13] MEDS: Insulin GLARGINE 100 un/ml (*) 10 ml VIAL SUBCUT SCH ×2 (09:44→20:43)
[2019-10-13] MEDS: Vitamin THERAPEUTIC TAB PO SCH (09:44)
[2019-10-14] MEDS: Nicotine GUM 4MG FRUIT FLAVOR PO PRN ×5 (01:05→22:44)
[2019-10-14] MEDS: Vancomycin(*) 1,250 MG in NS 0.9% 250 ml 250 ML IVPB SCH ×3 (01:05→17:43)
[2019-10-14] MEDS: Buprenorp/Nalox 8-2 MG SL TAB PO SCH ×2 (09:39→20:53)
[2019-10-14] MEDS: Vitamin THERAPEUTIC TAB PO SCH (09:40)
[2019-10-14 10:12] LABS: Albumin 3.7 g/dL (3.2-5.2); Albumin/Globulin Ratio 1.4 (1-3); BUN/Creatinine Ratio 36.5 (8-20); C Reactive Protein 3.93 mg/L (<8.01); Calcium 9.1 mg/dL (8.6-10.3); EGFR African American 107.5 (>60); EGFR Non-African American 88.8 (>60); Globulin 2.6 g/dL (2-4); Potassium 4.2 mmol/L (3.5-5.0); Total Bilirubin 0.3 mg/dL (0.2-1.0); Total Protein 6.3 g/dL (6.4-8.9)
[2019-10-14] MEDS ORDERED: Alteplase (CATHFLO) 2 MG VIAL IV ONE (10:15)
[2019-10-14] MEDS: Insulin LISPRO 100 units/ml(*) SUBCUT SCH ×7 (10:29→17:50)
[2019-10-14] MEDS: Insulin GLARGINE 100 un/ml (*) 10 ml VIAL SUBCUT SCH (10:31)
[2019-10-14 10:48] VITALS: BP 130/76
[2019-10-14 13:02] LABS: ABS Basophils 0.1 10^3/ul (0-0.2); ABS Eosinophils 0.1 10^3/ul (0-0.6); ABS Lymphocytes 2.1 10^3/ul (1.0-4.8); ABS Monocytes 0.4 10^3/ul (0-0.8); Eosinophil % 1.4 %; Hematocrit 32 % (35-47); Hemoglobin 10.7 g/dL (12.0-16.0); Lymphocyte % 38.2 %; Mean Corpuscular HGB Conc 33 g/dL (31-36); Mean Corpuscular Hemoglobin 26 pg (27-31); Mean Corpuscular Volume 78 fL (80-97); Mean Platelet Volume 6.6 fL (7.4-10.4); Nucleated Red Blood Cells % 0.1; Platelet Count 264 10^3/uL (150-450); Red Blood Count 4.09 10^6 /uL (3.70-4.87); Red Cell Distribution Width 15 % (10-15); White Blood Count 5.6 10^3/uL (3.5-10.8)
[2019-10-14] MEDS ORDERED: Insulin GLARGINE 100 un/ml (*) 10 ml VIAL SUBCUT SCH (21:00)
[2019-10-14 23:11] LABS: Urine Benzodiazepine Screen Presumptive Positive (None Detect); Urine Opiates Screen None Detected (None Detect)
[2019-10-15] MEDS: Vancomycin(*) 1,250 MG in NS 0.9% 250 ml 250 ML IVPB SCH (01:51)
[2019-10-15] MEDS ORDERED: Insulin GLARGINE 100 un/ml (*) 10 ml VIAL SUBCUT SCH (09:00)
[2019-10-15] MEDS: Insulin LISPRO 100 units/ml(*) SUBCUT SCH ×5 (09:39→14:12)
[2019-10-15] MEDS: Vitamin THERAPEUTIC TAB PO SCH (09:55)
[2019-10-15] MEDS: Buprenorp/Nalox 8-2 MG SL TAB PO SCH (09:55)
[2019-10-15] MEDS: Nicotine GUM 4MG FRUIT FLAVOR PO PRN (12:47)
== END 2019-10-15 15:15 | disposition home or self-care (01) | DRG 193 ==
LOC: MEDTELE 16:39
PROVIDERS: ADMIT Internal Medicine; ATTEND Hospitalist